=== PATIENT | male | born 1955 | race Caucasian/White ===

== ENCOUNTER 2025-01-28 11:41 | Day surgery (SDC) | payer MEDICARE, OTHER ==
[~2025-01-28] VITALS: Ht 175.3 cm; Wt 114.0 kg
[~2025-01-28 11:41] MED LIST: AMIODARONE HCL200 MG PO; ASPIRIN EC81 MG PO; CEFAZOLIN SODIUM 2 GM in SODIUM CHLORIDE 0.9% 100 ML IV SCH; CRESTOR40 MG PO; CYMBALTA30 MG PO; ESTER-C 1,0001 EACH PO; IBLOOD GLUCOSE TEST STRIP 1 EA TEST VI PRN; KETOROLAC TROMETHAMINE 30 MG/ML VIAL ONE; LACTATED RINGER'S 1,000 ML IV SCH; LIDOCAINE HCL 1% 5 ML SDV INJ ONE; METFORMIN HCL500 M1 PO; METOPROLOL SUC100 MG PO; METOPROLOL TART50 MG PO; PERCOCET 7.5-31 EACH PO; POTASSIUM CHLO10 MEQ PO; TOPROL XL100 MG PO; TURMERIC500 M2 PO; ULTRAM50 MG PO; VITAMIN C1000 M1 PO; VITAMIN D32000 UNI1 PO; VITAMIN D325 MC2 PO; WARFARIN SODIUM5 MG PO
[2025-01-28 12:03] VITALS: BP 148/76
[2025-01-28] MEDS ORDERED: LIDOCAINE HCL 2% 5 ML SDV ONE (12:09)
[2025-01-28 12:27] LABS: INR 1.37 (0.80-1.30); PROTIME 15.9 Sec (11.2-14.2)
[2025-01-28] MEDS ORDERED: fentaNYL citrate 100 MCG/2 ML VIAL ONE (12:36)
[2025-01-28] MEDS ORDERED: ACETAMINOPHEN 1,000 MG/100 ML VIAL ONE (12:59)
[2025-01-28] MEDS ORDERED: NALOXONE HCL 0.4 MG SYR IV PRN (13:00)
[2025-01-28] MEDS ORDERED: IBLOOD GLUCOSE TEST STRIP 1 EA TEST VI PRN (13:00)
[2025-01-28] MEDS ORDERED: HYDROmorphone HCL 1 MG/ML SYR IV PRN (13:00)
[2025-01-28] MEDS ORDERED: fentaNYL citrate 50 MCG/ML SDV IV PRN (13:00)
[2025-01-28] MEDS ORDERED: DEXAMETHASONE SOD PHOS 4 MG/ML VIAL ONE (13:00)
[2025-01-28] MEDS ORDERED: HYDROCODON-ACE1 EA10 PO (13:10)
[2025-01-28] MEDS ORDERED: GLYCOPYRROLATE 1 MG/5 ML MDV ONE (13:13)
[2025-01-28] MEDS ORDERED: HYDROCODONE/ACETA 5/325 TAB PO PRN (13:15)
--- NOTE | 2025-01-28 13:20 | NUR ---
01/28/25 1320 Fern Lazaro 1315: PT ARRIVES TO PACU REACTIVE, NON AROUSAL. REPORT RECEIVED FROM [employer] AND SEWER DIGGER.
[2025-01-28 13:45] VITALS: BP 116/58
--- NOTE | 2025-01-28 14:12 | NUR ---
1348: PATIENT BACK IN DAY SURGERY ROOM FROM PACU. RATES PAIN IN RIGHT KNEE 2-3/10. CMS TO RIGHT TOES WNL. ICE PACK TO RIGHT KNEE. RIGHT KNEE DRESSING CDI. VS CHECKED. SCDs ON. IV SITE WNL. ICE WATER PLACED AT BEDSIDE. CALL LIGHT WITHIN REACH.
[2025-01-28 14:50] VITALS: BP 123/61
--- NOTE | 2025-01-28 15:21 | NUR ---
1450 PT REPORTS TOLERABLE 3/10 PAIN IN KNEE AT THIS TIME. VITALS TAKEN. IV ASSESSED. GOOD CMS IN OPERAIVE LIMB. PT ABLE TO AMBULATE TO BATHROOM AND VOID 75 MLS OF CLEAR YELLOW URINE. PT ABLE TO AMBULATE BACK TO ROOM WITH EVEN STEADY GAIT. PT ABLE TO DRESS ON OWN WITHOUT ASSISTANCE. 1505 DISCHARGE INFORMATION GONE OVER WITH PT, PT SPOUSE AND PT DAUGHTER. NO QUESTIONS AT THIS TIME. PT ABLE TO AMBUALTE TO WHEELCHAIR 1513 PT DISCHARGED FROM DAY SURGERY VIA WHEELCHAIR TO THE FRONT OF THE HOSPITAL TO PT'S SPOUSE'S CAR.
[2025-01-28] MEDS ORDERED: SEVOFLURANE 250 ML BTL INH ONE (17:03)
[2025-01-28] MEDS ORDERED: DICLOFENAC SOD 75 MG TABEC PO SCH (21:00)
--- NOTE | 2025-01-29 05:44 | OR ---
[facility] [address] [place], [place] [address] Signed DATE OF OPERATION: 01/28/2025 SURGEON: Star Canchola MD PREOPERATIVE DIAGNOSIS: Medial and lateral meniscus tears, right knee. POSTOPERATIVE DIAGNOSIS: Medial and lateral meniscus tears, right knee. PROCEDURE: Knee arthroscopy with partial medial and lateral meniscectomy. CERTIFIED TECHNICIAN: Leonora Love PA-C. ANESTHESIA: General. BLOOD LOSS: Minimal. BRIEF HISTORY: Satinder is a 69-year-old gentleman with pain and catching in his knee. MRI was consistent with a large meniscus tear. Risks and benefits of operative treatment were discussed with him. He elected to proceed. Once consent was obtained, he was taken to the operating room. After adequate anesthesia, he was placed on the operating room table. The left leg was flexed, abducted, and externally rotated on a well-padded leg nichols. The right was placed in a leg nichols and prepped and draped in a standard sterile fashion. The portal sites were injected with 0.25% Marcaine with epinephrine. Standard inferolateral and superolateral portals were made and the scope was introduced in the knee. ARTHROSCOPIC FINDINGS: Moderate synovitis was noted throughout the knee, particularly laterally. The patella was noted to track well. The patellofemoral joint showed no significant osteoarthritis. Lateral compartment showed a small radial tear at the posterolateral corner. The cartilage was intact. Medial compartment showed intact cartilage and a large complex tear with an unstable inferior flap. DESCRIPTION OF OPERATION: Electronically Signed By: STAR CANCHOLA MD 01/29/25 0544 PATIENT NAME: SATINDER MELCHOR OPERATIVE REPORT DATE OF : 57 REPORT #: [id number] PHYSICIAN: STAR CANCHOLA MD PCP: SHAYLEE SINGLETARY DO REPORT IS CONFIDENTIAL AND NOT TO BE RELEASED WITHOUT AUTHORIZATION [facility] [address] [place] [id number] Signed Diagnostic arthroscopy was undertaken as noted above. The inferomedial portal was established after localizing using a spinal needle. The straight and curved biters were used to trim both meniscus tears back to a stable rim. This was then smoothed, then feathered out using the shaver and all debris was evacuated. The scope was then withdrawn. Portals were closed with 3-0 nylon and the knee was injected with 60 mg Toradol. The wounds were then dressed with Adaptic, ABD, and Yogesh wrap. He tolerated the procedure well. All sponge, needle, and instrument counts correct. Star Canchola MD BA/BRADYL /[id number] Copies: ~ Electronically Signed By: STAR CANCHOLA MD 01/29/25 0544 PATIENT NAME: SATINDER MELCHOR OPERATIVE REPORT DATE OF : 57 REPORT #: [id number] PHYSICIAN: STAR CANCHOLA MD PCP: SHAYLEE SINGLETARY DO REPORT IS CONFIDENTIAL AND NOT TO BE RELEASED WITHOUT AUTHORIZATION
== END 2025-01-28 15:13 | disposition home or self-care (01) ==
LOC: DS 11:41
PROVIDERS: Student in an Organized Health Care Education/Training Program; ATTEND Specialist
PROC: 0SBC4ZZ Excision of Right Knee Joint, Percutaneous Endoscopic Approach (ICD-10-PCS; 2025-01-28)
PROC: 0SBC4ZZ Excision of Right Knee Joint, Percutaneous Endoscopic Approach (ICD-10-PCS; principal; 2025-01-28 14:00)
DX: S83.281A Other tear of lateral meniscus, current injury, right knee, initial encounter (principal); S83.241A Other tear of medial meniscus, current injury, right knee, initial encounter; X58.XXXA Exposure to other specified factors, initial encounter; M65.98 Unspecified synovitis and tenosynovitis, other site; I48.91 Unspecified atrial fibrillation; I10 Essential (primary) hypertension; E11.9 Type 2 diabetes mellitus without complications; E78.00 Pure hypercholesterolemia, unspecified; G47.33 Obstructive sleep apnea (adult) (pediatric); F32.A Depression, unspecified; Z79.84 Long term (current) use of oral hypoglycemic drugs; Z79.01 Long term (current) use of anticoagulants; Z79.899 Other long term (current) drug therapy
CPT/HCPCS: 01400; 36415; 85610; J0131; J0688; J1100; J1885; J2003; J2405; J2704; J3010; J7121